=== PATIENT | female | born 1945 | race Hispanic/Latino ===

== ENCOUNTER 2017-06-10 16:05 | Outpatient (CLI) | payer MEDICARE, OTHER ==
--- NOTE | 2017-06-11 08:22 | Mammography Report ---
BILATERAL DIGITAL AUGMENTED DIAGNOSTIC MAMMOGRAM WITH CAD: 06/10/17 16:05:00 CLINICAL: Breast mass. Silicone implants have been in place since 1977 and she has not had a mammogram since 2000. COMPARISON:None available. FINDINGS: Bilateral MLO and CC views with and without implant displacement were performed. The breasts are mostly fatty with scattered bilateral benign calcifications. Bilateral ruptured silicone implants. The left implant is more collapsed and there is a large amount of extracapsular silicone in the upper outer quadrant. There is also extracapsular silicone anteriorly in the retroareolar location. Much less extracapsular silicone in the right breast. There is pronounced skin thickening of the right breast and no mass, architectural distortion or suspicious calcifications of the right breast. A relatively dense right axillary lymph node is partially imaged and measures at least 2.1 cm. No enlarged left axillary lymph nodes. No suspicious mass, architectural distortion or suspicious calcifications of the left breast. IMPRESSION: 1. Bilateral ruptured silicone implants with a greater amount of extracapsular silicone in the left breast in the right. 2. Suspicious skin thickening of the right breast without and identified etiology. 3. Right axillary lymph node enlargement is suspicious for either tumor or silicone deposition. 4. Recommend further evaluation with ultrasound. BI-RADS CATEGORY: 0--Needs Additional Imaging RECOMMENDATION: Bilateral breast ultrasound and bilateral axillary ultrasound.
== END 2017-06-10 16:06 | disposition home or self-care (01) ==
LOC: SPVWC 16:05
PROVIDERS: ATTEND Surgery
DX: N63.10 Unspecified lump in the right breast, unspecified quadrant (principal); N63.20 Unspecified lump in the left breast, unspecified quadrant; R92.1 Mammographic calcification found on diagnostic imaging of breast; R59.9 Enlarged lymph nodes, unspecified; Z98.82 Breast implant status
CPT/HCPCS: 77066; G0204

== ENCOUNTER 2017-06-20 17:43 | Outpatient (CLI) | payer MEDICARE, OTHER | END 2017-06-20 17:44 | disposition home or self-care (01) | LOC: LABHHL 17:43 | PROVIDERS: ATTEND Surgery | DX: C50.911 Malignant neoplasm of unspecified site of right female breast (principal) | CPT/HCPCS: 88305; 88361 ==

== ENCOUNTER 2017-07-11 10:10 | Outpatient (CLI) | payer MEDICARE, OTHER | END 2017-07-11 10:11 | disposition home or self-care (01) | LOC: LABHHL 10:10 | PROVIDERS: ATTEND Surgery | DX: L98.9 Disorder of the skin and subcutaneous tissue, unspecified (principal) | CPT/HCPCS: 88305 ==

== ENCOUNTER 2017-07-24 06:56 | Outpatient (CLI) | payer MEDICARE, OTHER ==
--- NOTE | 2017-07-26 13:15 | PET Report ---
PET/CT:07/24/17 06:56:00 CLINICAL: Breast cancer staging. Newly diagnosed right breast cancer. Needle biopsy on 06/20/17 revealed invasive carcinoma of type and a positive right axillary metastatic lymph node. RADIOPHARMACEUTICAL: 13.72mCi F18-FDG. COMPARISON: 06/10/17 bilateral mammogram. TECHNIQUE- Following intravenous injection of F-18 FDG and an approximately 60 minute uptake period, CT and PET images from the mid skull to the upper thighs were acquired with the patient in the fasted state. No contrast was administered. The CT protocol used for this PET CT study is designed for attenuation correction and anatomic localization of PET abnormalities. This dean of instruction CT is not desired to produce and cannot replace, [id number] diagnostic CT scans with specific imaging protocols for different body parts and indications. Plasma glucose at the time of this test: 117g/dl. The standardized uptake values (SUV) are normalized to patient body weight and indicate the highest activity concentration (SUV max) in a given disease site. FINDINGS: Brain--Physiologic FDG uptake in the visualized regions of the brain. Neck--Physiologic FDG uptake in mucosal structures. Chest--Physiologic FDG uptake in mediastinal blood pool and myocardium. A biopsy clip is identified in the right breast and correlates with the known cancer but there is no mass or FDG uptake associated with the clip. Bilateral breast implants with extensive capsular calcification. Lungs--No abnormal uptake. No pulmonary nodule or mass. Pleura/pericardium--No abnormal uptake. Thoracic nodes--A single inferior FDG avid enlarged right axillary lymph node measuring 2.7 x 2.0 cm with SUV 4.0. A 1 cm right axillary lymph node demonstrates no FDG uptake. Hepatobiliary--No abnormal uptake. Liver background SUV mean, as a reference for comparing FDG studies, is 2.1 . No liver mass. Spleen--No abnormal uptake. Pancreas--No abnormal uptake. Adrenal Glands--No abnormal uptake. Kidneys/Ureters/Bladder--No abnormal uptake. Abdominopelvic Nodes--No abnormal uptake. Bowel/Peritoneum/Mesentery--No abnormal uptake. Pelvic organs--No abnormal uptake. Bones/Soft Tissues--No abnormal uptake. Other findings: Extensive benign physiologic FDG uptake in paraspinous muscles of the upper and lower back, the right psoas muscle and muscles about the right hip. IMPRESSION-1. Newly diagnosed right breast cancer with no mass or FDG uptake in the right breast. I suspect that most of the lesion has been removed with the recent needle biopsy. 2. A single FDG avid right axillary sophie metastasis and a 1 cm non-FDG of the right axillary lymph node. 3. No evidence of pulmonary, hepatic or skeletal metastasis.
== END 2017-07-24 06:57 | disposition home or self-care (01) ==
LOC: PET 06:56
PROVIDERS: ATTEND Surgery
DX: C79.89 Secondary malignant neoplasm of other specified sites (principal); C50.411 Malignant neoplasm of upper-outer quadrant of right female breast; R59.9 Enlarged lymph nodes, unspecified; Z98.82 Breast implant status; Z79.899 Other long term (current) drug therapy
CPT/HCPCS: 78815; 82962; A9552